=== PATIENT | male | born 1970 | race Two or more races ===

== ENCOUNTER 2025-05-09 23:54 | Emergency (ER) | payer MEDICAID, OTHER ==
[~2025-05-09] VITALS: Ht 167.6 cm; Wt 59.0 kg
[2025-05-10 00:46] LABS: PLATELET COUNT (AUTO) 129 K/uL (150-450); RED BLOOD CELL COUNT(AUTO) 4.01 MIL/uL (4.5-6.0); RED CELL DISTRIBUTION WIDTH 14.3 % (11.5-15.0); WHITE BLOOD COUNT (AUTO) 5.2 K/uL (4.3-11.0)
[2025-05-10 01:03] LABS: CALCIUM, SERUM 8.4 mg/dL (8.5-10.1); CREATININE 0.5 mg/dL (0.6-1.3); SODIUM SERUM 140.0 mmol/L (136-145); UREA NITROGEN, BLOOD 3.0 mg/dL (7-18)
[2025-05-10 01:15] LABS: ASPARTATE AMINOTRANSFERASE 101.0 U/L (15-37); NT-PRO BNP 14.0 pg/mL (0-125); TOTAL PROTEIN, SERUM 7.0 g/dL (6.4-8.2)
[2025-05-10 01:17] LABS: APPEARANCE,URINE CLEAR (CLEAR); BLOOD, URINE NEGATIVE Ery/uL (NEGATIVE); LEUKOCYTE ESTERASE ,URINE NEGATIVE (NEGATIVE); NITRITE, URINE NEGATIVE (NEGATIVE); UGLUCOSE NEGATIVE (NEGATIVE)
[2025-05-10 01:26] LABS: AMPHETAMINE, URINE NEGATIVE (NEGATIVE); BARBITURATE, URINE NEGATIVE (NEGATIVE); BENZODIAZEPINE, URINE NEGATIVE (NEGATIVE); CANNABINOID, URINE NEGATIVE (NEGATIVE); COCCAINE, URINE NEGATIVE (NEGATIVE); OPIATE, URINE NEGATIVE (NEGATIVE)
[2025-05-10] MEDS ORDERED: POTASSIUM CL. PREMIX PERIPHER. 100 ML ONE (01:33)
[2025-05-10] MEDS: IV NS 0.9% 1,000 ML IV ONE ×2 (01:44→01:48)
[2025-05-10] MEDS: POTASSIUM CL. PREMIX PERIPHER. 50 ML IV SCH (01:45)
[2025-05-10 04:21] VITALS: BP 100/70; TEMP 98.3; O2SAT 98
== END 2025-05-10 04:21 | disposition home or self-care (01) ==
LOC: ER 23:56
DX: R00.2 Palpitations (principal); R06.02 Shortness of breath; F10.129 Alcohol abuse with intoxication, unspecified; Z79.899 Other long term (current) drug therapy; Y90.9 Presence of alcohol in blood, level not specified
CPT/HCPCS: 99285; 93005 ×2; 71045; 85025; 81003; 36415; 80053; 84484 ×2; 83880; 80320; 80307; J7030; J3480; A4223; G0480